=== PATIENT | female | born 1960 | race Caucasian/White ===

== ENCOUNTER → 2019-04-30 | Outpatient (CLI) | payer BC ==
[~2019-04-30] MED LIST: ASPI-587 PO; BUPR150T6 PO; CETI10TA17 PO; CITA40TA19 PO; HYDR1TAB8 OP; MULT-856 PO; NAPR220C11 PO
--- NOTE | 2019-04-30 10:14 | Diagnostic Imaging Report ---
PROCEDURE: CT sinuses without contrast TECHNIQUE: Multiple contiguous axial images were obtained through the sinuses without the use of intravenous contrast. Coronal and sagittal reformations were then performed. Auto Exposure Controls were utilized during the CT exam to meet ALARA standards for radiation dose reduction. INDICATION: Sinus infection. The frontal sinus is clear. There is some opacification of left-sided ethmoid air cells. Sphenoid sinuses clear. Right maxillary sinus is clear. There is near complete opacification of the left maxillary sinus consistent with sinusitis. Mastoids are well aerated. Ostiomeatal complex on the right appears to be patent. There is significant thickening and opacification in the region of the left ostiomeatal complex. Slight nasal septal deviation to the left is seen. No definite bony destructive changes are seen. IMPRESSION: Left maxillary sinusitis as well as ethmoid sinus mucosal disease. Dictated by: Dictated on workstation # [id number]
== END ==
LOC: RAD 09:03
PROVIDERS: ATTEND Otolaryngology Otolaryngology/Facial Plastic Surgery
DX: J32.8 Other chronic sinusitis (principal)
CPT/HCPCS: 70486

== ENCOUNTER 2019-05-18 05:40 | Outpatient (CLI) | payer BC ==
[~2019-05-18] VITALS: Ht 165.1 cm; Wt 127.0 kg
[2019-05-18] MEDS ORDERED: FLUT9.9S NSEACH (14:39)
[2019-05-18] MEDS ORDERED: MONT10TA24 PO (14:39)
[2019-05-18] MEDS ORDERED: ROPI0.253 PO (14:39)
[2019-05-18] MEDS ORDERED: BUPR150T7 PO (14:39)
[2019-05-18] MEDS ORDERED: LOSA1TAB23 PO (14:39)
[2019-05-18] MEDS ORDERED: TRAZ-190 PO (14:39)
[2019-05-18] MEDS ORDERED: OMEP40CA36 PO (14:39)
[2019-05-18] MEDS ORDERED: CITA40TA11 PO (14:39)
[2019-05-18] MEDS ORDERED: CARV12.53 PO (14:39)
== END 2019-05-18 14:41 ==
LOC: PREOP 05:40
PROVIDERS: ATTEND Otolaryngology Otolaryngology/Facial Plastic Surgery
DX: Z01.818 Encounter for other preprocedural examination (principal); J32.9 Chronic sinusitis, unspecified

== ENCOUNTER 2019-05-21 07:08 | Day surgery (SDC) | payer BC ==
[~2019-05-21] VITALS: Ht 165.1 cm; Wt 127.0 kg
[2019-05-21] VITALS (10 sets, daily range): BP systolic 96–127; BP diastolic 55–81
[~2019-05-21 07:08] MED LIST changes: +BUPR150T7 PO; +CARV12.53 PO; +CITA40TA11 PO; +FLUT9.9S NSEACH; +LOSA1TAB23 PO; +MONT10TA24 PO; +OMEP40CA36 PO; +ROPI0.253 PO; +TRAZ-190 PO
[2019-05-21] MEDS ORDERED: LACTATED RINGERS 1,000 ML IV PRN (07:28)
[2019-05-21] MEDS ORDERED: CLINDAMYCIN 600 MG/50 ML IVPB 50 ML IV ONE ×2 (07:30→07:35)
[2019-05-21 07:49] LABS: BASOPHILS % (AUTO) 1 % (0-10); EOSINOPHILS # (AUTO) 0.1 10^3/uL (0.0-0.3); EOSINOPHILS % (AUTO) 2 % (0-10); HEMATOCRIT 40 % (35-52); LYMPHOCYTES # (AUTO) 1.6 X 10^3 (1.0-4.0); LYMPHOCYTES % (AUTO) 26 % (12-44); MEAN CORPUSCULAR HEMOGLOBIN 29 PG (25-34); MEAN CORPUSCULAR HGB CONC 33 G/DL (32-36); MEAN CORPUSCULAR VOLUME 88 FL (80-99); MEAN PLATELET VOLUME 11.1 FL (7.4-10.4); MONOCYTES # (AUTO) 0.8 X 10^3 (0.0-1.0); MONOCYTES % (AUTO) 12 % (0-12); NEUTROPHILS # (AUTO) 3.8 X 10^3 (1.8-7.8); NEUTROPHILS % (AUTO) 60 % (42-75); PLATELET COUNT 280 10^3/uL (130-400); RED CELL DISTRIBUTION WIDTH 14.9 % (10.0-14.5); WHITE BLOOD COUNT 6.4 10^3/uL (4.3-11.0)
[2019-05-21] MEDS ORDERED: MULT-1021 PO (07:50)
[2019-05-21] MEDS ORDERED: CETI10CA PO (07:50)
[2019-05-21] MEDS ORDERED: COCAINE HCL 4% 2 ML SYR ONE (07:54)
[2019-05-21] MEDS ORDERED: LIDOCAINE/EPI 1%-1:100,000 (XYLOCAINE) 20ML ONE (07:55)
[2019-05-21] MEDS ORDERED: PHENYLEPHRINE 0.5% NASAL SPR (NEO-SYNEPHRINE) REG ONE (07:55)
[2019-05-21] MEDS ORDERED: BSS 15 ML ONE (07:55)
[2019-05-21] MEDS ORDERED: NS IV 500 ML 500 ML ONE (07:56)
--- NOTE | 2019-05-21 07:57 | Progress Note-Pre Operative ---
Pre-Operative Progress Note H&P Reviewed The H&P was reviewed, patient examined and no changes noted. Date Seen by Provider: May 21, 2019 Time Seen by Provider: 07:45 Date H&P Reviewed: May 21, 2019 Time H&P Reviewed: 07:45 Pre-Operative Diagnosis: Chronic Left Sinusitis EVER PERRY MD May 21, 2019 07:57
[2019-05-21] MEDS ORDERED: CATHETER FLUSH 10 ML SYR IV PRN (08:00)
[2019-05-21] MEDS ORDERED: fentaNYL INJECTION 100 MCG/2 ML AMP ONE (08:04)
[2019-05-21] MEDS ORDERED: MIDAZOLAM 2 MG/2 ML (VERSED) VIAL ONE (08:04)
[2019-05-21] MEDS ORDERED: ROCURONIUM 10 MG/ML 5 ML SYRINGE IV ONE (08:13)
[2019-05-21] MEDS ORDERED: SEVOFLURANE (ULTANE) 15 ML INHAL SOLN ONE ×2 (08:13→09:44)
[2019-05-21] MEDS ORDERED: ONDANSETRON 4 MG/2 ML (SDV) Z0FRAN ONE (08:13)
[2019-05-21] MEDS ORDERED: proPOfol 200 MG/20 ML (DIPRIVAN) VIAL IV ONE (08:13)
[2019-05-21] MEDS ORDERED: LIDOCAINE PF 2% 5 ML (XYLOCAINE) VIAL ONE (08:13)
[2019-05-21] MEDS ORDERED: DEXAMETHASONE 10 MG/ML (DECADRON) 1 ML VIAL ONE (08:13)
[2019-05-21] MEDS ORDERED: NEOSTIGMINE 3 MG/3 ML VIAL ONE (09:06)
[2019-05-21] MEDS ORDERED: GLYCOPYRROLATE 0.2 MG/ML (ROBINUL) 2 ML VIAL ONE (09:06)
[2019-05-21] MEDS ORDERED: D5 1/2 NS W/KCL 20 MEQ/L 1,000 ML IV SCH (09:18)
--- NOTE | 2019-05-21 09:18 | Progress Note-Post Operative ---
Post-Operative Progess Note Surgeon (s)/Environmental Geologist (s) Surgeon EVER PERRY MD Environmental Geologist n/a Pre-Operative Diagnosis Chronic Left Sinusitis Post-Operative Diagnosis same Post-Op Procedure Note Date of Procedure: May 21, 2019 Name of Procedure Performed: Left ESS Description & Findings Description and Findings: n/a Anesthesia Type get Estimated Blood Loss minimal Packing none. Specimen(s) collected/removed cultures left max sinus-aerobic anaerobic and fungal to lab left chornic sinus disease EVER PERRY MD May 21, 2019 09:18
[2019-05-21] MEDS ORDERED: ACETAMINOPHEN 325 MG TABLET PO PRN (09:30)
[2019-05-21] MEDS ORDERED: HYDROcodone/APAP 5 MG/325 MG (LORTAB) TAB PO PRN (09:30)
[2019-05-21] MEDS ORDERED: PROMETHAZINE INJ 25 MG/ML (PHENERGAN) AMP IVP PRN (09:30)
[2019-05-21] MEDS ORDERED: morphine INJ 10 MG/ML 1ML (SYR OR VIAL) ONE (09:31)
[2019-05-21] MEDS ORDERED: HYDROmorphone 2 MG/ML VIAL (DILAUDID) IV ONE (09:45)
[2019-05-21] MEDS ORDERED: morphine INJ 10 MG/ML 1ML (SYR OR VIAL) IVP ONE (09:45)
[2019-05-21] MEDS ORDERED: ONDANSETRON 4 MG/2 ML (SDV) Z0FRAN IVP PRN (09:45)
--- NOTE | 2019-05-21 10:10 | Anesthesia-General Post-Op ---
General Patient Condition Mental Status/LOC: Same as Preop Cardiovascular: Satisfactory Nausea/Vomiting: Absent Respiratory: Satisfactory Pain: Controlled Complications: Absent Post Op Complications Complications None Follow Up Care/Instructions Patient Instructions None needed. Anesthesia/Patient Condition Patient Condition Patient is doing well, no complaints, stable vital signs, no apparent adverse anesthesia problems. No complications reported per nursing. MÓNICA PALACIOS CRNA May 21, 2019 10:10
[2019-05-21] MEDS ORDERED: HYDR-3812 PO (11:06)
[2019-05-21] MEDS ORDERED: CLIN300C3 PO (11:06)
== END 2019-05-21 11:25 | disposition home or self-care (01) ==
LOC: SDC 07:08
PROVIDERS: ATTEND Otolaryngology Otolaryngology/Facial Plastic Surgery
DX: J32.9 Chronic sinusitis, unspecified (principal); I10 Essential (primary) hypertension; E78.5 Hyperlipidemia, unspecified; K21.9 Gastro-esophageal reflux disease without esophagitis; F32.9 Major depressive disorder, single episode, unspecified; E66.01 Morbid (severe) obesity due to excess calories; Z68.42 Body mass index [BMI] 45.0-49.9, adult; Z90.89 Acquired absence of other organs; Z90.711 Acquired absence of uterus with remaining cervical stump
CPT/HCPCS: 36415; 85025; 87070; 87075; 87076; 87081; 87205; 88305; 93005

== ENCOUNTER → 2019-11-20 | Outpatient (CLI) | payer BC ==
[~2019-11-20] MED LIST changes: +ACHD5005 PO; +CETI10CA PO; +CLIN300C3 PO; -MONT10TA24 PO; +MONT10TA26 PO; +MULT-1021 PO; +OMEP40CA27 PO; -OMEP40CA36 PO; -TRAZ-190 PO; +TRAZ-227 PO
--- NOTE | 2019-11-20 17:13 | Diagnostic Imaging Report ---
INDICATION: Patient suffered rib pain a year ago when she was sick with bad cough, pain went away until she recently started going to a chiropractor. Patient is having right-sided rib pain. FINDINGS: Two views of the chest demonstrate the lungs to be clear. The heart, mediastinum, pulmonary vascularity, and the visualized bony thorax are normal. No fractures are identified. IMPRESSION: Normal chest. Dictated by: Dictated on workstation # [id number]
== END ==
LOC: RAD 16:17
PROVIDERS: ATTEND Chiropractor
DX: M54.6 Pain in thoracic spine (principal); M79.10 Myalgia, unspecified site
CPT/HCPCS: 71046

== ENCOUNTER 2021-07-05 11:55 | Emergency (ER) | payer BC ==
[~2021-07-05] VITALS: Ht 165 cm; Wt 124.7 kg
[~2021-07-05 11:55] MED LIST changes: +BUPR150T24 PO; -BUPR150T7 PO; -MONT10TA26 PO; +MONT10TA32 PO; -OMEP40CA27 PO; +OMEP40CA6 PO
--- OUTSIDE RECORDS SUMMARY | 2021-07-05 12:01 | XMS REPORT | Clinical Summary ---
Author Author [facility] Organization 

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
[2021-07-05] MEDS ORDERED: KETOROLAC 30 MG/ML VIAL IVP ONE (12:15)
[2021-07-05] MEDS ORDERED: ONDANSETRON 4 MG/2 ML (SDV) Z0FRAN IVP ONE (12:15)
[2021-07-05 12:21] LABS: BASOPHILS # (AUTO) 0.1 10^3/uL (0.0-0.1); BASOPHILS % (AUTO) 1 % (0-10); EOSINOPHILS # (AUTO) 0.1 10^3/uL (0.0-0.3); EOSINOPHILS % (AUTO) 1 % (0-10); HEMATOCRIT 41 % (35-52); HEMOGLOBIN 13.9 g/dL (11.5-16.0); LYMPHOCYTES # (AUTO) 1.4 10^3/uL (1.0-4.0); LYMPHOCYTES % (AUTO) 21 % (12-44); MEAN CORPUSCULAR HEMOGLOBIN 30 pg (25-34); MEAN CORPUSCULAR HGB CONC 34 g/dL (32-36); MEAN CORPUSCULAR VOLUME 89 fL (80-99); MEAN PLATELET VOLUME 11.2 fL (9.0-12.2); MONOCYTES # (AUTO) 0.7 10^3/uL (0.0-1.0); MONOCYTES % (AUTO) 10 % (0-12); NEUTROPHILS # (AUTO) 4.3 10^3/uL (1.8-7.8); NEUTROPHILS % (AUTO) 66 % (42-75); PLATELET COUNT 244 10^3/uL (130-400); WHITE BLOOD COUNT 6.5 10^3/uL (4.3-11.0)
[2021-07-05 12:30] LABS: CHLORIDE 103 MMOL/L (98-107); POTASSIUM 4.4 MMOL/L (3.6-5.0); SODIUM 136 MMOL/L (135-145)
[2021-07-05] MEDS ORDERED: LORazepam INJ 2 MG/ML (ATIVAN) VIAL IVP PRN (12:30)
[2021-07-05 12:32] LABS: GLUCOSE 96 MG/DL (70-105)
[2021-07-05 12:33] LABS: CARBON DIOXIDE 21 MMOL/L (21-32)
[2021-07-05 12:34] LABS: BILIRUBIN,TOTAL 0.5 MG/DL (0.1-1.0)
[2021-07-05 12:36] LABS: ALKALINE PHOSPHATASE 63 U/L (40-136); CREATININE SERUM 0.81 MG/DL (0.60-1.30); GFR ESTIMATED 71
[2021-07-05 12:37] LABS: BUN/CREATININE RATIO 30
[2021-07-05 12:39] LABS: ALANINE AMINOTRANSFERASE 31 U/L (0-55)
--- NOTE | 2021-07-05 13:00 | Diagnostic Imaging Report ---
PROCEDURE: CT head without contrast. TECHNIQUE: Multiple contiguous axial images were obtained through the brain without the use of intravenous contrast. Auto Exposure Controls were utilized during the CT exam to meet ALARA standards for radiation dose reduction. INDICATION: 61-year-old female with headache, shortness of breath and nausea Comparisons: None. FINDINGS: Midline structures are not displaced. Lateral, 3rd and 4th ventricles are normal in size, shape and anatomic position. There is no mass, mass effect, hydrocephalus or hemorrhage. Gutierrez-white differentiation is normal. There is no sulcal effacement. There are no abnormal extra-axial fluid collections or hemorrhage. Basilar cisterns appear normal. Sinuses, orbits and mastoid air cells normal. Bone windows show no calvarial changes. IMPRESSION: Unremarkable nonenhanced CT brain. There is mild age-appropriate senescent changes. There is some minimal calcific atherosclerosis in the carotid siphons. Dictated by: Dictated on workstation # [id number]
[2021-07-05 13:16] VITALS: BP 135/75
== END 2021-07-05 13:16 | disposition home or self-care (01) ==
LOC: EDUNIT# 11:55 → ER 11:56
DX: I10 Essential (primary) hypertension (principal); F43.0 Acute stress reaction; F32.9 Major depressive disorder, single episode, unspecified; E66.9 Obesity, unspecified; Z68.42 Body mass index [BMI] 45.0-49.9, adult; Z79.899 Other long term (current) drug therapy
CPT/HCPCS: 36415; 70450; 80053; 83880; 84484; 85025; 93005

== ENCOUNTER 2021-11-23 05:34 | Outpatient (CLI) | payer BC ==
[~2021-11-23] VITALS: Ht 165.1 cm; Wt 127.3 kg
[~2021-11-23 05:34] MED LIST changes: -CITA40TA11 PO; +CITA40TA13 PO; +MONT-40 PO; -MONT10TA32 PO
[2021-11-23] MEDS ORDERED: FLUT9.9S NS (16:55)
[2021-11-23] MEDS ORDERED: CHOL500049 PO (16:55)
[2021-11-23] MEDS ORDERED: MAGN250T13 PO (16:55)
[2021-11-23] MEDS ORDERED: OMEG1CAP24 PO (16:55)
[2021-11-23] MEDS ORDERED: ASCO100024 PO (16:55)
[2021-11-23] MEDS ORDERED: CEPH250T PO (16:55)
[2021-11-23] MEDS ORDERED: AMLO-250 PO (16:55)
[2021-11-23] MEDS ORDERED: BIOT10005 PO (16:55)
[2021-11-23] MEDS ORDERED: CLON0.5T4 PO (16:55)
[2021-11-23] MEDS ORDERED: CRAN500T3 PO (16:55)
[2021-11-23] MEDS ORDERED: NAPR220C11 PO (17:02)
== END 2021-11-23 17:05 | disposition home or self-care (01) ==
LOC: PREOP 05:34
PROVIDERS: ATTEND Surgery
DX: Z01.818 Encounter for other preprocedural examination (principal)

== ENCOUNTER 2021-11-30 07:03 | Day surgery (SDC) | payer BC ==
[2021-11-30] VITALS (11 sets, daily range): BP systolic 105–141; BP diastolic 55–95
[~2021-11-30] VITALS: Ht 165.1 cm; Wt 129.1 kg
[~2021-11-30 07:03] MED LIST changes: +AMLO-250 PO; +ASCO100024 PO; +BIOT10005 PO; +CEPH250T PO; +CHOL500049 PO; +CLON0.5T4 PO; +CRAN500T3 PO; +FLUT9.9S NS; +MAGN250T13 PO; +OMEG1CAP24 PO
[2021-11-30] MEDS ORDERED: LIDOCAINE/EPI 1%-1:200,000 (XYLOCAINE) 30 ML VIAL ONE (07:15)
[2021-11-30] MEDS: LACTATED RINGERS 1,000 ML IV PRN ×3 (07:30→11:53)
[2021-11-30] MEDS ORDERED: ceFAZolin 2 GM IV Premixed 50 ML IV ONE (07:30)
[2021-11-30] MEDS ORDERED: ROCURONIUM 10 MG/ML 5 ML SYRINGE IV ONE (09:17)
[2021-11-30] MEDS ORDERED: ONDANSETRON 4 MG/2 ML (SDV) Z0FRAN ONE (09:17)
[2021-11-30] MEDS ORDERED: SEVOFLURANE (ULTANE) 15 ML INHAL SOLN ONE ×2 (09:17→11:24)
[2021-11-30] MEDS ORDERED: LIDOCAINE PF 2% 5 ML (XYLOCAINE) VIAL ONE (09:17)
[2021-11-30] MEDS ORDERED: proPOfol 200 MG/20 ML (DIPRIVAN) VIAL IV ONE (09:17)
[2021-11-30] MEDS ORDERED: fentaNYL INJ 100 MCG/2 ML AMP ONE (09:18)
[2021-11-30] MEDS ORDERED: MIDAZOLAM 2 MG/2 ML (VERSED) VIAL ONE (09:18)
[2021-11-30] MEDS ORDERED: ATROPINE INJ 0.4 MG/ML SDV ONE (10:08)
--- NOTE | 2021-11-30 11:26 | Progress Note-Post Operative ---
Post-Operative Progess Note Surgeon (s)/Human Resources Administrator (s) Surgeon FRANCISCO J HERNANDEZ DO Human Resources Administrator: Dr. Brush Pre-Operative Diagnosis UMBILICAL HERNIA Post-Operative Diagnosis umbilical and epigastric incarcerated hernias Procedure & Operative Findings Date of Procedure 11/30/21 Procedure Performed/Findings robotic incarcerated umbilical and incarcerated umbilical hernia repair c mesh Anesthesia Type general Estimated Blood Loss Estimated blood loss (mL): minimal Specimens/Packing Specimens Removed hernia contents FRANCISCO J HERNANDEZ DO Nov 30, 2021 11:26
[2021-11-30] MEDS ORDERED: DOCU-143 PO (11:28)
[2021-11-30] MEDS ORDERED: ACHD5005 PO (11:28)
--- NOTE | 2021-11-30 11:30 | Discharge Inst-Simple/Standard ---
Discharge Inst-Standard Discharge Medications New, Converted or Re-Newed RX: Transmitted to Pharmacy Patient Instructions/Follow Up Plan of Care/Instructions/FU: 2 weeks Jesus Activity as Tolerated: No Discharge Diet: Regular Diet Other Inst to Patient Follow up Appt: Make appointment for 2 week. Instructions: No lifting greater than 10 pounds. No strenuous activity. May shower in 24 hours, no tub bath or soaking. Use incentive spirometer at home as directed. No Smoking Skin/Wound Care: You have special glue over your incision that will fall off on it's own. Symptoms to Report: Appetite Changes, Extremity Discoloration, Numbness/Tingling, Swelling Increased, Bleeding Excessive, Eyesight Changes, Pain Increased, Urine Color Change, Constipation(Persistent), Fever over 101 degree F, Pain/Pressure in chest, Urinating Difficulty, Cough Up/Vomit Blood, Heart Beat Irreg/Pounding, Pain/Pressure in jaw, Vaginal Bleeding Increase, Cramps in feet or legs, Lightheadedness, Pain/Pressure in shoulder, Diarrhea(Persistent), Memory Changes Suddenly, Questions/Concerns, Weight gain consecutive days, Dizziness/Fainting, Nausea/Vomiting, Shortness of Breath, Weight gain over 2 pounds If questions or concerns contact your physician Or seek help at emergency department. FRANCISCO J HERNANDEZ DO Nov 30, 2021 11:30
--- NOTE | 2021-11-30 11:36 | Anesthesia-General Post-Op ---
General Patient Condition Mental Status/LOC: Same as Preop Cardiovascular: Satisfactory Nausea/Vomiting: Absent Respiratory: Satisfactory Pain: Controlled Complications: Absent Post Op Complications Complications None Follow Up Care/Instructions Patient Instructions None needed. Anesthesia/Patient Condition Patient Condition Patient is doing well, no complaints, stable vital signs, no apparent adverse anesthesia problems. No complications reported per nursing. SUHAS LLANOS CRNA Nov 30, 2021 11:36
[2021-11-30] MEDS ORDERED: morphine INJ 10 MG/ML 1ML (SYR OR VIAL) ONE (11:43)
[2021-11-30] MEDS ORDERED: ONDANSETRON 4 MG/2 ML (SDV) Z0FRAN IVP PRN (11:45)
[2021-11-30] MEDS ORDERED: MEPERIDINE (DEMEROL) INJ 50 MG/ML IVP ONE (11:45)
[2021-11-30] MEDS ORDERED: fentaNYL INJ 100 MCG/2 ML AMP IVP ONE (11:45)
[2021-11-30] MEDS ORDERED: morphine INJ 10 MG/ML 1ML (SYR OR VIAL) IVP ONE (11:45)
[2021-11-30] MEDS ORDERED: HYDROcodone/APAP 5 MG/325 MG (LORTAB) TAB PO ONE (13:00)
--- NOTE | 2021-12-01 00:35 | OPERATIVE REPORT ---
DATE OF SERVICE: 11/30/2021 PREOPERATIVE DIAGNOSIS: Umbilical hernia. POSTOPERATIVE DIAGNOSIS: Incarcerated umbilical and incarcerated epigastric hernia. PROCEDURE: Robotic incarcerated umbilical and incarcerated epigastric hernia repair with mesh. SURGEON: Francisco J Lee DO STAFF TECHNOLOGIST: Dr. Brush, assisted in retraction, dissection and closure. ANESTHESIA: General. ESTIMATED BLOOD LOSS: Minimal. COMPLICATIONS: None. INDICATIONS: The patient is a 61-year-old female with an umbilical hernia, which is causing discomfort. She understands risks and benefits of procedure and wishes to proceed. Consent was signed in the chart. DESCRIPTION OF PROCEDURE: The patient was taken to the operating suite. She was prepped and draped in sterile fashion. Timeout was performed. Local anesthetic was infiltrated in the left upper quadrant. An #11 blade scalpel was used to make a small skin incision. Cautery was used to dissect down to the fascia, which was scored and divided. The muscle was divided bluntly. The posterior fascia was then divided, and 12 mm balloon trocar was inserted. Pneumoperitoneum was achieved. Under direct visualization of the laparoscope, two 8 mm trocars were placed on the left side of the abdomen. The robot was then docked. The patient was visualized incarcerated umbilical hernia. This was then started to be taken down with cautery scissors. Once this was done, the falciform was then continued to be divided noting an epigastric hernia that was incarcerated. The hernia contents were fat, which were continued to be retracted and dissected around until completely removed. The falciform ligament was then continued to be divided to where would have adequate coverage of the mesh. An 0 V-Loc permanent mesh was then inserted and the defects were then closed in a running fashion. The Echo Ventralight 10 x 15 cm mesh was inserted and grasped through a stab incision between the two hernias brought out and the balloon was inflated. Circumferentially, the mesh was sewn into place using 2-0 V-Loc 180 and then the balloon was removed and the two V-Loc was continued to be ran down the middle of the mesh. Glade were cut and removed. The hernia contents that were removed were placed in an Endobag and removed through the 12 mm trocar site. The 12 mm trocar was then removed. The fascia was then closed using 0 Vicryl in a [id number] fashion. The skin was then closed using 4-0 Monocryl in a running subcuticular fashion. The abdomen was then washed and dried and Skin Affix was placed over the incisions. The patient tolerated the procedure well without any complications. She was taken to recovery room in stable condition. Job ID: [id number] DocumentID: [id number] Dictated Date: 11/30/2021 20:41:06 Filler In Date: 12/01/2021 00:34:33 Dictated By: FRANCISCO J LEE DO
== END 2021-11-30 15:00 | disposition home or self-care (01) ==
LOC: SDC 07:03
PROVIDERS: ATTEND Surgery
DX: K42.0 Umbilical hernia with obstruction, without gangrene (principal); K43.6 Other and unspecified ventral hernia with obstruction, without gangrene; E66.01 Morbid (severe) obesity due to excess calories; Z68.42 Body mass index [BMI] 45.0-49.9, adult
CPT/HCPCS: 87081; 94664